=== PATIENT | male | born 1970 | race Caucasian/White ===

== ENCOUNTER 2017-01-22 10:35 | Inpatient (IN) | payer OTHER ==
[2017-01-22 10:40] VITALS: BMI 30.8
[2017-01-22] MEDS ORDERED: NS 1000 ML 1,000 ML IV ONE (11:01)
[2017-01-22] MEDS ORDERED: NS 1000 ML 1,000 ML ONE (11:04)
--- NOTE | 2017-01-22 11:04 | DR.ABDMALE ---
HPI - Time seen Time seen: 10:50 - PCP Primary Care Physician: LARON - HPI comment HPI Comment: PATIENT HAD PILONIDAL CYST SURGERY ABD STILL HAVE INFECTION IN SURGERY AREA WITH PAIN. ALSO ABDOMINAL PAIN, DIARRHEA AND NAUSEA ALSO. NO FEVER. PAIN WORSE AT NIGHT. WORSE TODAY ALSO. - Complaint Chief Complaint Doctors Comments: INCREASING ABDOMINAL PAIN TIMES 3 WEEKS. Chief Complaint:: PT. C/O ABDOMINAL PAIN X 3 WEEKS WHICH IS WORSE AT NIGHT. PT. STATES HE IS NOT SLEEPING WELL AT ALL AND IS UP EVERY HOUR AND HAVING DIARRHEA. PT. HAD 2 CYST NEAR BUTTOCKS REMOVED 3 WEEKS AGO IN [place]. - Reviewed Nurses Notes Review: Yes - Mode of arrival Mode of Arrival: Ambulatory - Timing Onset of Chief Complaint: 01/01/17 Came on: Gradually - Duration Duration: Constant Duration: Days - Location Location: Diffuse - Severity Severity: Moderate - Quality Quality: Cramping, Sharp - Context Onset: Gradually History of: None - Modifying factors Worsening Factors: Nothing Improving Factors: Nothing - Associated signs and symptoms Associated Signs and Symptoms: Nausea, Diarrhea PMH - PMH Past Medical History: No Past Surgical History: Yes Surgical History: Appendectomy, Other Past Surgical History Comment: CYST REMOVAL, ROTATOR CUFF, RIGHT KNEE - Family History History of Family Medical Conditions: No - Social History Does patient currently use any type of tobacco product: No Have you used tobacco products in the last 12 months: Yes Type of Tobacco Use: Cigarettes Does any household member use tobacco: No Alcohol Use: None Do you use any recreational Drugs:: No Lives With: Family Lives Where: Home - infectious screening In the last 2 months have you had wt loss of >10#?: NO Have you had fever, night sweats or hemotysis?: No Have you traveled outside the country in the last 6 months?: No Isolation: Standard ROS - Review of Systems Constitutional: Weakness, Fatigue Eyes: negative: Eye Pain, Discharge ENTM: negative: Ear Pain, Nose Discharge, Nose Congestion, Throat Pain Respiratoy: Non-Productive Cough. negative: Short of Breath, Wheezing, Hemoptysis Cardiovascular: No Symptoms Reported Gastrointestinal/Abdominal: Abdominal Pain, Diarrhea, Nausea Genitourinary: No Symptoms Reported. negative: Dysuria, Frequency, Hematuria Neurological: Weakness Musculoskeletal: Muscle Pain Integumentary: Dryness Endocrine: No Symptoms Reported All Other Systems: Reviewed and Negative PE - Vital Signs Vital Signs: Temp Pulse Resp BP Pulse Ox 10/20/17 10:36 97.6 F 93 H 18 133/82 99 02/16/13 09:10 126/80 - General Limitations: No Limitations General Appearance: Alert - Head Head Exam: Normal Inspection - Eyes Eye exam: Normal Appearance - ENT ENT Exam: Normal External Ear Exam - Chest Chest Inspection: Symmetric Chest Wall Rise - Respiratory Respiratory Exam: Normal Lung Sounds Bilat Respiratory Exam: Bilateral Clear to Auscultation - Cardiovascular Cardiovascular Exam: Regular Rate, Normal Rhythm, Normal Heart Sounds - Abdominal Exam Abdominal Exam: Normal Bowel Sounds, Soft, Tenderness Abdominal Tenderness: Diffuse, Moderate - Rectal Rectal Exam: Other (INFECTED PILONIDAL CYSY POSR DRAINAGE) - Back Back Exam: Paraspinal Tenderness - Extremeties Extremities Exam: Normal Inspection - Exam: Male: Deferred - Neurologic Neurological Exam: Alert, Oriented X3 - Psychiatric Psychiatric Exam: Normal Affect, Normal Mood - Skin Skin Exam: Erythema MDM - Differential Diagnosis Differential Diagnosis: Bowel Obstruction, Cholcystitis, Cholelethiasis, Gastritus/PUD, Gastroenteritis, Pancreatitis, Urinary tract infection, Urolithiasis Course - Treatment Treatment: SEE ORDERS. - Education/Counseling Education/Counseling: Patient, Education Educated On: Treatment, Diagnosis, Needs for Follow Up ROR - Labs Reviewed Laboratory Results Reviewed?: Yes Result Diagrams: 01/24/17 04:05 01/24/17 04:05 Laboratory: 01/22/17 11:20 Blood Blood Culture - Preliminary 01/22/17 11:10 Blood Blood Culture - Preliminary WBC 12.8 X10^3/uL (3.6-10.0) H 01/24/17 04:05 RBC 4.82 X10^6/uL (4.7-6.0) 01/24/17 04:05 Hgb 14.1 g/dL (13.5-18.0) 01/24/17 04:05 Hct 42.4 % (42.0-54.0) 01/24/17 04:05 MCV 88.0 fL (80.0-100.0) 01/24/17 04:05 MCH 29.2 pg (27.0-34.0) 01/24/17 04:05 MCHC 33.2 g/dL (33.0-35.0) 01/24/17 04:05 RDW 14.0 % (11.6-16.5) 01/24/17 04:05 Plt Count 255 X10^3/uL (150.0-450.0) 01/24/17 04:05 MPV 7.3 fL (7.4-11.0) L 01/24/17 04:05 Neut % 76.1 % (42.0-75.0) H 01/24/17 04:05 Lymph % 10.8 % (21.0-51.0) L 01/24/17 04:05 [place] % 9.2 % (0.0-13.0) 01/24/17 04:05 Eos % 3.6 % (0.9-2.9) H 01/24/17 04:05 Baso % 0.3 % (0.2-1.0) 01/24/17 04:05 Neut # 9.7 x10^3/uL (2.2-4.8) H 01/24/17 04:05 Lymph # 1.4 X10^3/uL (1.3-2.9) 01/24/17 04:05 [place] # 1.2 x10^3/uL (0.3-0.8) H 01/24/17 04:05 Eos # 0.5 x10^3/uL (0.0-0.2) H 01/24/17 04:05 Baso # 0.0 X10^3/uL (0.0-0.1) 01/24/17 04:05 Absolute Nucleated RBC 0.0 /100WBC 01/24/17 04:05 Sodium 139 mmol/L (136-145) 01/24/17 04:05 Corrected Sodium 139 mmol/L (136-145) 01/24/17 04:05 Potassium 4.8 mmol/L (3.5-5.1) 01/24/17 04:05 Chloride 107 mmol/L (98-107) 01/24/17 04:05 Carbon Dioxide 25.5 mmol/L (21-32) 01/24/17 04:05 BUN 8 mg/dL (7-18) 01/24/17 04:05 Creatinine 1.20 mg/dL (0.70-1.30) 01/24/17 04:05 Est GFR (MDRD) Af Amer > 60 (>60) 01/24/17 04:05 Est GFR (MDRD) Non-Af > 60 (>60) 01/24/17 04:05 Glucose 120 mg/dL (65-99) H 01/24/17 04:05 Calcium 8.6 mg/dL (8.5-10.1) 01/24/17 04:05 Corrected Calcium 9.7 mg/dL (8.5-10.1) 01/24/17 04:05 Total Bilirubin 0.30 mg/dL (0.2-1.0) 01/24/17 04:05 AST 19 Units/L (15-37) 01/24/17 04:05 ALT 27 Units/L (12-78) 01/24/17 04:05 Alkaline Phosphatase 34 Units/L (46-116) L 01/24/17 04:05 Total Protein 5.6 g/dL (6.4-8.2) L 01/24/17 04:05 Albumin 2.6 g/dL (3.4-5.0) L 01/24/17 04:05 Globulin 3.0 g/dL (2.5-4.5) 01/24/17 04:05 Albumin/Globulin Ratio 0.9 Ratio (1.1-2.1) L 01/24/17 04:05 Amylase 24 Units/L (25-115) L 01/22/17 11:00 Lipase 122 Units/L (73-393) 01/22/17 11:00 Specimen Type Clean catch urine 01/22/17 15:58 Urine Color Dark yellow (YELLOW) 01/22/17 15:58 Urine Appearance Clear (CLEAR) 01/22/17 15:58 Urine pH 6.0 (5.0 - 8.0) 01/22/17 15:58 Ur Specific [place] 1.020 (1.000-1.030) 01/22/17 15:58 Urine Protein 1+ (NEGATIVE) 01/22/17 15:58 Urine Glucose (UA) 1+ (NEGATIVE) 01/22/17 15:58 Urine Ketones Negative (NEGATIVE) 01/22/17 15:58 Urine Occult Blood Negative (NEGATIVE) 01/22/17 15:58 Urine Nitrite Negative (NEGATIVE) 01/22/17 15:58 Urine Bilirubin Negative (NEGATIVE) 01/22/17 15:58 Urine Urobilinogen Normal (NORMAL) 01/22/17 15:58 Ur Leukocyte Esterase 1+ (NEGATIVE) 01/22/17 15:58 Urine RBC None seen /HPF (NEGATIVE) 01/22/17 15:58 Urine WBC 0-1 /HPF (NEGATIVE) 01/22/17 15:58 Ur Squamous Epith Cells Rare /HPF (NEGATIVE) 01/22/17 15:58 Urine Bacteria Negative /HPF (NEGATIVE) 01/22/17 15:58 Urine Mucus Rare /HPF (NEGATIVE) 01/22/17 15:58 Ur Culture Indicated? No/not indicated 01/22/17 15:58 Stool Description 30 g. liquid/mucoid 01/22/17 15:58 Stl Occult Blood (IFOB) Positive (NEGATIVE) A 01/22/17 15:58 Stool for White Cells Positive (NEGATIVE) A 01/22/17 15:58 Stl C. diff Tox B Gene Positive (NEGATIVE) A 01/22/17 15:58 Stl C. diff [id number] Positive (NEGATIVE) A 01/22/17 15:58 Cryptosporid parvum Ag Negative (NEGATIVE) 01/22/17 15:58 E. histolytica Antigen Negative (NEGATIVE) 01/22/17 15:58 Giardia lamblia Ag Negative (NEGATIVE) 01/22/17 15:58 - XRAY XRAY Findings: REPORT DISCUSS WITH PATIENT. - Diagnosis Discharge Problem: Infected pilonidal cyst Diarrhea Qualifiers: Diarrhea type: unspecified type Qualified Code(s): R19.7 - Diarrhea, unspecified Ulcerative colitis Qualifiers: Ulcerative colitis location: ulcerative pancolitis Digestive disease complication type: without complication Qualified Code(s): K51.00 - Ulcerative ( chronic) pancolitis without complications Abdominal pain Qualifiers: Abdominal location: generalized Qualified Code(s): R10.84 - Generalized abdominal pain - Discharge Plan Disposition: ADMITTED INPATIENT Condition: Stable - Follow ups/Referrals - Instructions
[2017-01-22 11:11] LABS: BASOPHILS # (AUTO) 0.1 X10^3/uL (0.0-0.1); BASOPHILS % (AUTO) 0.4 % (0.2-1.0); EOSINOPHILS # (AUTO) 0.2 x10^3/uL (0.0-0.2); EOSINOPHILS % (AUTO) 1.1 % (0.9-2.9); HEMATOCRIT 46.7 % (42.0-54.0); HEMOGLOBIN 16.2 g/dL (13.5-18.0); LYMPHOCYTES # (AUTO) 0.9 X10^3/uL (1.3-2.9); LYMPHOCYTES % (AUTO) 5.5 % (21.0-51.0); MEAN CORPUSCULAR HGB CONC 34.6 g/dL (33.0-35.0); MEAN CORPUSCULAR VOLUME 86.8 fL (80.0-100.0); MEAN PLATELET VOLUME 7.1 fL (7.4-11.0); MONOCYTES # (AUTO) 1.5 x10^3/uL (0.3-0.8); MONOCYTES % (AUTO) 9.5 % (0.0-13.0); NEUTROPHILS # (AUTO) 13.4 x10^3/uL (2.2-4.8); NEUTROPHILS % (AUTO) 83.5 % (42.0-75.0); PLATELET COUNT 281 X10^3/uL (150.0-450.0); RED BLOOD COUNT 5.39 X10^6/uL (4.7-6.0); RED CELL DISTRIBUTION WIDTH 14.4 % (11.6-16.5)
[2017-01-22 11:23] LABS: ALANINE AMINOTRANSFERASE 33 Units/L (12-78); ALBUMIN 3.4 g/dL (3.4-5.0); ALKALINE PHOSPHATASE 43 Units/L (46-116); AMYLASE 24 Units/L (25-115); ASPARTATE AMINO TRANSFERASE 20 Units/L (15-37); BLOOD UREA NITROGEN 8 mg/dL (7-18); CALCIUM 9.2 mg/dL (8.5-10.1); CARBON DIOXIDE 25.9 mmol/L (21-32); CHLORIDE 104 mmol/L (98-107); COR NA(FOR HYPERGLY) 137 mmol/L (136-145); LIPASE 122 Units/L (73-393); SODIUM 137 mmol/L (136-145); eGFR BLACK RACES > 60 (>60); eGFR NON BLACK RACES > 60 (>60)
--- NOTE | 2017-01-22 11:53 | CT ---
History: Abdominal pain and diarrhea for 2 weeks Study: CT of the abdomen and pelvis without contrast. Sagittal and coronal reformations were provided . Comparison: None Findings: The liver and spleen and pancreas and kidneys and adrenal glands are unremarkable. The visu alized lung bases are clear. No significant bony abnormality is demonstrated. There is diffuse thickening of the wall of the colon with stranding of fat planes around the colon. T he there is no free fluid or free air and there is no small bowel distention. There is no adenopathy. Impression: Diffuse colitis, suggestive of ulcerative colitis. Reported By:
[2017-01-22] MEDS ORDERED: PEPCID 20 MG IV PREMIX* 20 MG/50 ML BAG IV PRN (12:44)
[2017-01-22] MEDS ORDERED: ZOFRAN INJ 4 MG VIAL IVP PRN (12:44)
[2017-01-22] MEDS ORDERED: MORPHINE SULFATE INJ 4 MG ONE (12:54)
[2017-01-22] MEDS: NS 1000 ML 1,000 ML IV SCH (12:59)
[2017-01-22] MEDS: FLAGYL IV PREMIX 500 MG BAG 500 MG/100 ML BAG IV SCH ×3 (12:59→20:56)
[2017-01-22] MEDS: MORPHINE SULFATE INJ 2 MG INJ IVP PRN ×2 (12:59→18:14)
[2017-01-22] MEDS ORDERED: TORADOL 30 MG VIAL IVP ONE (15:11)
[2017-01-22] MEDS: PHENERGAN INJ 25 MG IVP PRN (15:40)
[2017-01-22 16:19] LABS: BILIRUBIN,URINE NEGATIVE (NEGATIVE); BLOOD/HEMOGLOBIN,URINE NEGATIVE (NEGATIVE); GLUCOSE, URINE 1+ (NEGATIVE); KETONES,URINE NEGATIVE (NEGATIVE); LEUKOCYTE ESTERASE ,URINE 1+ (NEGATIVE); NITRITES,URINE NEGATIVE (NEGATIVE); PROTEIN,URINE 1+ (NEGATIVE); UROBILINOGEN,URINE NORMAL (NORMAL)
[2017-01-22 16:38] LABS: APPEARANCE,URINE CLEAR (CLEAR); COLOR,URINE DARK YELLOW (YELLOW)
[2017-01-22 16:39] LABS: BACTERIA,URINE NEGATIVE /HPF (NEGATIVE); MUCUS,URINE RARE /HPF (NEGATIVE); RBC,URINE NONE SEEN /HPF (NEGATIVE); SQUAMOUS EPITHELIAL CELL,UR RARE /HPF (NEGATIVE)
[2017-01-22 16:57] LABS: STOOL FOR WBC POSITIVE (NEGATIVE)
[2017-01-22] MEDS ORDERED: TORADOL 30 MG VIAL IVP PRN (19:06)
[2017-01-22 19:16] LABS: CRYPTOSPORIDIUM PARVUM ANTIGEN NEGATIVE (NEGATIVE); GIARDIA LAMBLIA ANTIGEN NEGATIVE (NEGATIVE)
[2017-01-22] MEDS: CIPRO IV 400 MG PREMIX* 400 MG/200 ML IV.SOLN. IV SCH (20:57)
[2017-01-22] MEDS: RESTORIL CAP 15 MG PO PRN (20:57)
[2017-01-23] MEDS: NS 1000 ML 1,000 ML IV SCH ×5 (00:26→21:24)
[2017-01-23] MEDS ORDERED: NS 1/2 1000 ML IV 1,000 ML IV ONE (02:13)
[2017-01-23] MEDS: FLAGYL IV PREMIX 500 MG BAG 500 MG/100 ML BAG IV SCH ×2 (02:19→08:18)
[2017-01-23] MEDS: PHENERGAN INJ 25 MG IVP PRN (02:52)
[2017-01-23 06:03] LABS: BASOPHILS # (AUTO) 0.1 X10^3/uL (0.0-0.1); BASOPHILS % (AUTO) 0.6 % (0.2-1.0); EOSINOPHILS # (AUTO) 0.4 x10^3/uL (0.0-0.2); EOSINOPHILS % (AUTO) 2.7 % (0.9-2.9); HEMATOCRIT 42.2 % (42.0-54.0); HEMOGLOBIN 14.4 g/dL (13.5-18.0); LYMPHOCYTES # (AUTO) 1.2 X10^3/uL (1.3-2.9); LYMPHOCYTES % (AUTO) 9.2 % (21.0-51.0); MEAN CORPUSCULAR HEMOGLOBIN 29.9 pg (27.0-34.0); MEAN CORPUSCULAR HGB CONC 34.1 g/dL (33.0-35.0); MEAN CORPUSCULAR VOLUME 87.6 fL (80.0-100.0); MEAN PLATELET VOLUME 7.6 fL (7.4-11.0); MONOCYTES # (AUTO) 1.4 x10^3/uL (0.3-0.8); MONOCYTES % (AUTO) 10.4 % (0.0-13.0); NEUTROPHILS # (AUTO) 10.4 x10^3/uL (2.2-4.8); NEUTROPHILS % (AUTO) 77.1 % (42.0-75.0); PLATELET COUNT 249 X10^3/uL (150.0-450.0); RED BLOOD COUNT 4.82 X10^6/uL (4.7-6.0); RED CELL DISTRIBUTION WIDTH 14.2 % (11.6-16.5); WHITE BLOOD COUNT 13.4 X10^3/uL (3.6-10.0)
[2017-01-23 06:24] LABS: ALANINE AMINOTRANSFERASE 29 Units/L (12-78); ALBUMIN 2.8 g/dL (3.4-5.0); ALKALINE PHOSPHATASE 35 Units/L (46-116); ASPARTATE AMINO TRANSFERASE 16 Units/L (15-37); BLOOD UREA NITROGEN 7 mg/dL (7-18); CALCIUM 8.6 mg/dL (8.5-10.1); CARBON DIOXIDE 25.2 mmol/L (21-32); CHLORIDE 107 mmol/L (98-107); COR CA(FOR HYPOALB) 9.6 mg/dL (8.5-10.1); CREATININE 1.27 mg/dL (0.70-1.30); SODIUM 139 mmol/L (136-145); TOTAL PROTEIN 5.9 g/dL (6.4-8.2); eGFR BLACK RACES > 60 (>60); eGFR NON BLACK RACES > 60 (>60)
[2017-01-23] MEDS: CIPRO IV 400 MG PREMIX* 400 MG/200 ML IV.SOLN. IV SCH ×2 (08:19→20:44)
[2017-01-23] MEDS ORDERED: BENTYL CAP 10 MG PO ONE (14:26)
[2017-01-23] MEDS: BENTYL CAP 10 MG PO SCH ×3 (14:32→20:45)
[2017-01-23] MEDS: FLAGYL TAB 500 MG PO SCH ×2 (14:33→21:25)
[2017-01-23] MEDS: ULTRAM PO SCH ×2 (14:33→20:44)
[2017-01-23] MEDS: RESTORIL CAP 15 MG PO PRN (20:45)
[2017-01-24] MEDS: ULTRAM PO SCH ×4 (02:21→21:33)
[2017-01-24 05:07] LABS: BASOPHILS % (AUTO) 0.3 % (0.2-1.0); EOSINOPHILS # (AUTO) 0.5 x10^3/uL (0.0-0.2); EOSINOPHILS % (AUTO) 3.6 % (0.9-2.9); HEMATOCRIT 42.4 % (42.0-54.0); HEMOGLOBIN 14.1 g/dL (13.5-18.0); LYMPHOCYTES # (AUTO) 1.4 X10^3/uL (1.3-2.9); LYMPHOCYTES % (AUTO) 10.8 % (21.0-51.0); MEAN CORPUSCULAR HEMOGLOBIN 29.2 pg (27.0-34.0); MEAN CORPUSCULAR HGB CONC 33.2 g/dL (33.0-35.0); MEAN PLATELET VOLUME 7.3 fL (7.4-11.0); MONOCYTES # (AUTO) 1.2 x10^3/uL (0.3-0.8); MONOCYTES % (AUTO) 9.2 % (0.0-13.0); NEUTROPHILS # (AUTO) 9.7 x10^3/uL (2.2-4.8); NEUTROPHILS % (AUTO) 76.1 % (42.0-75.0); PLATELET COUNT 255 X10^3/uL (150.0-450.0); RED BLOOD COUNT 4.82 X10^6/uL (4.7-6.0); WHITE BLOOD COUNT 12.8 X10^3/uL (3.6-10.0)
[2017-01-24 05:24] LABS: ALANINE AMINOTRANSFERASE 27 Units/L (12-78); ALBUMIN 2.6 g/dL (3.4-5.0); ALKALINE PHOSPHATASE 34 Units/L (46-116); ASPARTATE AMINO TRANSFERASE 19 Units/L (15-37); BLOOD UREA NITROGEN 8 mg/dL (7-18); CALCIUM 8.6 mg/dL (8.5-10.1); CARBON DIOXIDE 25.5 mmol/L (21-32); CHLORIDE 107 mmol/L (98-107); COR CA(FOR HYPOALB) 9.7 mg/dL (8.5-10.1); COR NA(FOR HYPERGLY) 139 mmol/L (136-145); SODIUM 139 mmol/L (136-145); TOTAL PROTEIN 5.6 g/dL (6.4-8.2); eGFR BLACK RACES > 60 (>60); eGFR NON BLACK RACES > 60 (>60)
[2017-01-24] MEDS: NS 1000 ML 1,000 ML IV SCH ×3 (06:18→19:15)
[2017-01-24] MEDS: FLAGYL TAB 500 MG PO SCH ×3 (06:18→21:33)
[2017-01-24] MEDS: CIPRO IV 400 MG PREMIX* 400 MG/200 ML IV.SOLN. IV SCH ×2 (08:30→21:32)
[2017-01-24] MEDS: BENTYL CAP 10 MG PO SCH ×4 (08:31→21:32)
[2017-01-24] MEDS ORDERED: TORADOL 15 MG VIAL IVP ONE (12:39)
[2017-01-24] MEDS ORDERED: TORADOL 15 MG VIAL IVP PRN (14:09)
[2017-01-24] MEDS ORDERED: NS 1000 ML 1,000 ML IV ONE (14:09)
[2017-01-24] MEDS: COLCRYS TAB 0.6 MG PO SCH ×2 (15:43→21:33)
--- NOTE | 2017-01-24 19:14 | DR.H&P ---
H&P - History & Physical for Day of: H&P Date: 01/22/17 - Chief Complaint Chief Complaint: IS A 46 YEAR OLD PATIENT OF OURS WHO PRESENTED TO THE EMERGENCY ROOM WITH COMPLAINTS OF ABDOMINAL PAIN X 3 WEEKS. PATIENT HAS BEEN TREATED OUTPATIENT AT OUR OFFICE WITH CIPRO, LOMOTIL, BENTYL, AND OMEPRAZOLE. PATIENT ALSO REPORTS SYMPTOMS OF DIARRHEA AND NAUSEA. HE REPORTS A HISTORY OF PILONIDAL CYST REMOVEL 3 WEEKS AGO. HE DENIES FEVER. ON ARRIVAL, HIS VITAL SIGNS WERE 98.5-89-18-98%-139/79. LABS WERE OBTAINED. ABNORMAL LAB VALUES INCLUDE THE FOLLOWING: WBC 16.0, GLUCOSE 116, ALK PHOS 43, STOOL POSITIVE FOR OCCULT BLOOD, WBC, AND C-DIFF. BLOOD CULTURES AND STOOL CULTURES WERE SENT TO LAB. A WOUND CULTURE OF WOUND TO BUTTOCK ALSO SENT TO LAB. A CT OF THE ABD/ PELVIS W/O CONTRAST WAS OBTAINED AND REPORTED DIFFUSE COLITIS, SUGGESTIVE OF ULCERATIVE COLITIS. HE WAS ADMITTED FOR FURTHER TREATMENT AND EVALUATION. HE WAS STARTED ON FLAGYL 500MG Q6H IV, CIPRO 400MG IV Q12H, PEPCID 20MG IV Q12, NORMAL SALINE, ZOFRAN IV PRN FOR NAUSEA, AND MORPHINE IV PRN FOR PAIN. WE PLANNED TO FOLLOW UP WITH AM LABS AND CONTINUE TO MONITOR PATIENT. - Allergies Allergies/Adverse Reactions: Allergies Allergy/AdvReac Type Severity Reaction Status Date / Time Sulfa (Sulfonamide Allergy Verified 01/22/17 10:40 Antibiotics) [SULFA] - Past Medical History Past Medical History: GERD - Past Surgical History Surgical History: Appendectomy, Other Additional Surgical History: CYST REMOVED FROM BUTTOCK 3 WEEKS AGO - Social History Does patient currently use any type of tobacco product: No Have you used tobacco products in the last 12 months: Yes Type of Tobacco Use: Cigarettes How many years tobacco product used: 30 Does any household member use tobacco: No Alcohol Use: None Drug Use: None - Medications Home Medications: Ciprofloxacin HCl 1 tab PO BID 01/22/17 [History Confirmed 01/22/17] Dicyclomine HCl [BENTYL CAP 10 MG *] 1 cap PO QID PRN 01/22/17 [History Confirmed 01/22/17] Diphenoxylate/Atropine [LOMOTIL TAB *] 1 tab PO QID PRN 01/22/17 [History Confirmed 01/22/17] Omeprazole 20 mg PO BID 01/22/17 [History Confirmed 01/22/17] - Review of Systems Constitutional: Weakness. denies: Fever Eyes: No Symptoms Reported ENT: No Symptoms Reported Respiratory: Cough (NON-PRODUCTIVE ) Cardiovascular: No Symptoms Reported Gastrointestinal: See HPI, Nausea, Abdominal Pain, Diarrhea. denies: Vomiting, Constipation Genitourinary: No Symptoms Reported Musculoskeletal: No Symptoms Reported Skin: No Symptoms Reported Neurological: Weakness - Physical Exam Vital Signs: Temperature 99 F Pulse Rate [Right Brachial] 78 Pulse Rate 93 Respiratory Rate 18 Blood Pressure [Left Arm] 117/60 Blood Pressure [Right Arm] 114/57 Blood Pressure 133/82 O2 Sat by Pulse Oximetry 96 Oriented: Normal Eyes: Normal Ear: Normal Nose: Normal Throat: Normal Respiratory: Clear Throughout Cardiovascular: Normal : Normal Auscultation: Bowel Sounds: Increased Palpation: Normal Tenderness: Diffuse. negative: Rebound, Rigidity Skin: Normal Musculoskeletal: Normal Psychiatric: Normal Mood Description: Calm Affect: Normal Speech Pattern: Clear - Assessment/Plan (1) Abdominal pain Qualifiers: Abdominal location: generalized Qualified Code(s): R10.84 - Generalized abdominal pain Status: Acute Plan: MORPHINE PRN PAIN, CONTINUE TO MONITOR (2) Ulcerative colitis Qualifiers: Ulcerative colitis location: ulcerative pancolitis Digestive disease complication type: without complication Qualified Code(s): K51.00 - Ulcerative (chronic) pancolitis without complications Status: Acute Plan: ADMINISTER PAIN AND NAUSEA MEDS, CIPRO 400MG IV Q12H, FLAGYL 500MG IV Q6H , IV HYDRATION, CONTINUE TO MONITOR (3) C. difficile colitis Status: Acute Plan: CIPRO 400MG IV Q12H, FLAGYL 500MG IV Q6H, IV HYDRATION, CONTINUE TO MONITOR
[2017-01-24] MEDS: RESTORIL CAP 15 MG PO PRN (21:42)
[2017-01-25 04:35] LABS: BASOPHILS % (AUTO) 0.3 % (0.2-1.0); EOSINOPHILS # (AUTO) 0.4 x10^3/uL (0.0-0.2); EOSINOPHILS % (AUTO) 3.3 % (0.9-2.9); HEMATOCRIT 38.9 % (42.0-54.0); HEMOGLOBIN 13.1 g/dL (13.5-18.0); LYMPHOCYTES # (AUTO) 1.3 X10^3/uL (1.3-2.9); LYMPHOCYTES % (AUTO) 11.2 % (21.0-51.0); MEAN CORPUSCULAR HEMOGLOBIN 29.2 pg (27.0-34.0); MEAN CORPUSCULAR HGB CONC 33.6 g/dL (33.0-35.0); MEAN CORPUSCULAR VOLUME 86.9 fL (80.0-100.0); MONOCYTES # (AUTO) 1.3 x10^3/uL (0.3-0.8); NEUTROPHILS # (AUTO) 8.6 x10^3/uL (2.2-4.8); NEUTROPHILS % (AUTO) 74.2 % (42.0-75.0); PLATELET COUNT 238 X10^3/uL (150.0-450.0); RED BLOOD COUNT 4.48 X10^6/uL (4.7-6.0); RED CELL DISTRIBUTION WIDTH 13.9 % (11.6-16.5); WHITE BLOOD COUNT 11.6 X10^3/uL (3.6-10.0)
[2017-01-25 05:01] LABS: ALANINE AMINOTRANSFERASE 23 Units/L (12-78); ALBUMIN 2.5 g/dL (3.4-5.0); ALKALINE PHOSPHATASE 32 Units/L (46-116); ASPARTATE AMINO TRANSFERASE 17 Units/L (15-37); BLOOD UREA NITROGEN 6 mg/dL (7-18); CALCIUM 8.5 mg/dL (8.5-10.1); CARBON DIOXIDE 25.8 mmol/L (21-32); CHLORIDE 107 mmol/L (98-107); COR CA(FOR HYPOALB) 9.7 mg/dL (8.5-10.1); CREATININE 1.11 mg/dL (0.70-1.30); SODIUM 140 mmol/L (136-145); TOTAL PROTEIN 5.4 g/dL (6.4-8.2); eGFR BLACK RACES > 60 (>60); eGFR NON BLACK RACES > 60 (>60)
[2017-01-25] MEDS: FLAGYL TAB 500 MG PO SCH ×2 (06:16→13:33)
[2017-01-25] MEDS: ULTRAM PO SCH ×2 (06:16→09:46)
[2017-01-25] MEDS: COLCRYS TAB 0.6 MG PO SCH (09:46)
[2017-01-25] MEDS: BENTYL CAP 10 MG PO SCH ×2 (09:46→13:32)
[2017-01-25] MEDS: CIPRO IV 400 MG PREMIX* 400 MG/200 ML IV.SOLN. IV SCH (09:47)
[2017-01-25 12:26] VITALS: BP 123/78
== END 2017-01-25 12:30 | disposition home or self-care (01) | DRG 386 ==
LOC: ER 10:41 → MED/SURG 13:20 → OBSVTOIN 13:20
PROVIDERS: ADMIT Internal Medicine; ATTEND Internal Medicine
DX: K51.00 Ulcerative (chronic) pancolitis without complications (principal); R10.84 Generalized abdominal pain; R19.7 Diarrhea, unspecified; L05.91 Pilonidal cyst without abscess; D72.828 Other elevated white blood cell count; A04.72 Enterocolitis due to Clostridium difficile, not specified as recurrent; K92.1 Melena
CPT/HCPCS: 36415; 74176; 80053; 81001; 82150; 82270; 83630; 83690; 85025; 87040; 87045; 87070; 87075; 87205; 87328; 87329; 87336; 87427; 87493; 87899; 96365; 96374; 96375; 99284; A4222; S0028; S0030; J0744; J1885; J2270; J2405; J2550

== ENCOUNTER 2018-07-10 09:57 | Observation (INO) ==
[2018-07-10] MEDS ORDERED: NITROSTAT SL PRN (10:04)
[2018-07-10] MEDS: ASPIRIN 81 MG CHEWTAB PO ONE (10:05)
[2018-07-10] MEDS ORDERED: ASPIRIN 81 MG CHEWTAB ONE (10:06)
[2018-07-10] MEDS ORDERED: MORPHINE SULFATE INJ 4 MG IVP ONE (10:11)
[2018-07-10] MEDS ORDERED: MORPHINE SULFATE INJ 4 MG ONE (10:12)
[2018-07-10 10:18] LABS: BASOPHILS # (AUTO) 0.1 X10^3/uL (0.0-0.1); BASOPHILS % (AUTO) 0.9 % (0.2-1.0); EOSINOPHILS # (AUTO) 0.1 x10^3/uL (0.0-0.2); EOSINOPHILS % (AUTO) 1.6 % (0.9-2.9); HEMATOCRIT 47.9 % (42.0-54.0); HEMOGLOBIN 16.5 g/dL (13.5-18.0); LYMPHOCYTES # (AUTO) 1.9 X10^3/uL (1.3-2.9); LYMPHOCYTES % (AUTO) 23.5 % (21.0-51.0); MEAN CORPUSCULAR HEMOGLOBIN 32.4 pg (27.0-34.0); MEAN CORPUSCULAR HGB CONC 34.5 g/dL (33.0-35.0); MEAN CORPUSCULAR VOLUME 94.2 fL (80.0-100.0); MONOCYTES # (AUTO) 0.6 x10^3/uL (0.3-0.8); NEUTROPHILS # (AUTO) 5.5 x10^3/uL (2.2-4.8); PLATELET COUNT 233 X10^3/uL (150.0-450.0); RED BLOOD COUNT 5.09 X10^6/uL (4.7-6.0); RED CELL DISTRIBUTION WIDTH 14.9 % (11.6-16.5); WHITE BLOOD COUNT 8.2 X10^3/uL (3.6-10.0)
[2018-07-10 10:24] VITALS: BMI 30.8
[2018-07-10 10:33] LABS: BLOOD UREA NITROGEN 10 mg/dL (7-18); CALCIUM 9.1 mg/dL (8.5-10.1); CARBON DIOXIDE 23.3 mmol/L (21-32); CHLORIDE 102 mmol/L (98-107); COR NA(FOR HYPERGLY) 141 mmol/L (136-145); CREATININE 1.28 mg/dL (0.70-1.30); SODIUM 139 mmol/L (136-145); TROPONIN I < 0.02 ng/mL (0-1.5); eGFR NON BLACK RACES > 60 (>60)
--- NOTE | 2018-07-10 10:46 | RAD ---
HISTORY: Chest pain Study: Single-view chest Comparison: None Findings: The trachea is midline. The cardiac silhouette is unremarkable. The lungs are clear without focal infiltrate or effusion. The bony thorax is unremarkable. IMPRESSION: 1. No acute cardiopulmonary disease. Reported By:
[2018-07-10 10:58] LABS: ALANINE AMINOTRANSFERASE 49 Units/L (12-78); ALBUMIN 4.1 g/dL (3.4-5.0); ALKALINE PHOSPHATASE 36 Units/L (46-116); ASPARTATE AMINO TRANSFERASE 29 Units/L (15-37); CKMB % 1.7 % (<4); CREATINE KINASE 70 Units/L (39-308); CREATINE KINASE MB 1.2 ng/mL (0-4.0); MAGNESIUM 1.7 mg/dL (1.7-2.9); TOTAL PROTEIN 7.3 g/dL (6.4-8.2)
--- NOTE | 2018-07-10 11:19 | DR.CP ---
HPI Time Seen Time Seen by Provider: 07/10/18 10:43 PCP Primary Care Physician: pastora Complaint Chief Complaint Doctor Comments: Patient presented today for evaluation of right chest pain onset on yesterday after picking up a 50-75lbs concrete slab. The pain has increased in intensity since then it is 10/10, sharp non radiating. He denies a history of cardiac disease. Family history: dad with heart attack, younger brother due to cancer. Chief Complaint:: pt stated yesterday he picked up a heavy concret slab and s tarted hurting in his right chest wall. this morning on his way to [facility] his pain got worse. Source History Provided: Patient Mode of Arrival Mode of Arrival: Ambulatory Timing Onset of Chief Complaint: 07/09/18 PMH PMH Past Medical History: Yes Past Medical History: Asthma and Hypertension; denies Anxiety, Arthritis, [place] ry Artery Disease, CVA, Diabetes, Dyslipidemia, Hyperthyroidism and Hypothyroidism Past Surgical History: Yes Surgical History: Unknown, No History and Ortho Surgery Family History History of Family Medical Conditions: No Social History Does patient currently use any type of tobacco product: No Have you used tobacco products in the last 12 months: No Type of Tobacco Use: None Does any household member use tobacco: No Alcohol Use: None Do you use any recreational Drugs:: No Lives With: Alone Lives Where: Home infectious screening In the last 2 months have you had wt loss of >10#?: NO Have you had fever, night sweats or hemotysis?: No Have you traveled outside the country in the last 6 months?: No Isolation: Standard ROS Review of Systems Constitutional: No Symptoms Reported Eyes: No Symptoms Reported; negative Blurred Vision, Discharge, Photophobia and Diplopia ENTM: negative No Symptoms Reported, Ear Pain, Ear Discharge, Pulling on Ears, Hearing Loss, Nose Discharge and Epistaxis Respiratoy: negative No Symptoms Reported, Productive Cough, Non-Productive Cough, Orthopnea, Short of Breath and Stridor Cardiovascular: negative No Symptoms Reported, Chest Pain (right chest wall pain), Edema, Palpitations and Syncope Gastrointestinal/Abdominal: negative No Symptoms Reported Genitourinary: negative No Symptoms Reported Neurological: No Symptoms Reported; negative Anxiety, Emotional Problems, Headache, Numbness and Paresthesia Musculoskeletal: Muscle Pain (chest wall pain) and Chest wall; negative Shoulder, Arm, Elbow and Wrist Integumentary: negative No Symptoms Reported and Change in Color Hematologic/Lymphatic: negative No Symptoms Reported Endocrine: Excessive Sweating, Intolerance to Cold and Intolerance to Heat; negative No Symptoms Reported Psychiatric: No Symptoms Reported; negative Depression All Other Systems: Reviewed and Negative PE Vitals Vitals: Temperature 98.6 F Pulse Rate [Left Radial] 100 Pulse Rate 100 Respiratory Rate 16 Blood Pressure [Left Arm] 157/94 Blood Pressure 164/98 O2 Sat by Pulse Oximetry 98 General Limitations: No Limitations General Appearance: Alert, Anxious and In Distress (right chest wall pain) Head Head Exam: Normal Inspection, Atraumatic and Normocephalic Eyes Eye exam: Normal Appearance, PERRL and EOMI; negative Scleral Icterus, Conjunctival Injection, Nystagmus and Periorbital Tenderness ENT ENT Exam: Normal Exam, Normal Oropharynx, Normal External Ear Exam, Mucous Membranes Moist and TM's Normal Bilaterally Chest Chest Inspection: Normal Inspection, Symmetric Chest Wall Rise and Tenderness (right chest wall, no erythema or ecchymosis) Respiratory Respiratory Exam: Normal Lung Sounds Bilat and Chest Wall Tenderness (right); negative Prolonged Expiratory Phase, Respiratory Distress and Stridor Respiratory Exam: Bilateral: Clear to Auscultation Cardiovascular Cardiovascular Exam: Regular Rate, Normal Rhythm and Normal Heart Sounds Pulse: Normal Edema: negative Normal Abdominal Exam Abdominal Exam: Normal Inspection, Normal Bowel Sounds, Soft and Hypoactive Bowel Sounds; negative Distention, Guarding and Organomegaly Abdominal Tenderness: LLQ, Suprapubic and Diffuse; negative RUQ, RLQ, LUQ and Epigastrium Extremities Extremities Exam: Normal Inspection, Full ROM and Normal Capillary Refill; negative Tenderness, Edema, Joint Swelling and Calf Tenderness Back Back Exam: Normal Inspection, Full ROM and Muscle Spasm (rogjt); negative Tenderness, (R) CVA Tenderness, (L) CVA Tenderness, Paraspinal Tenderness, Vertebral Tenderness and Rashes Neurologic Neurological Exam: Alert, Oriented X3, CN II-XII Intact and Normal Gait Psychiatric Psychiatric Exam: Normal Affect, Anxious and Flat Affect Skin Skin Exam: Warm, Dry, Intact and Normal Color MDM Differential Diagnosis Differential Diagnosis: Angina, Aortic Dissection, Chest Wall Pain, Pleuritis and Pneumonia COURSE Treatment Treatment: Cardiac workup, Reevaluation 1st: Improved (pain level 7/10) Consultation Called: 11:00 Consultation Comments: Dr. Markham agreed to admit for chest pain protocol ROR Labs Reviewed Result Diagrams: 04/07/19 10:02 07/10/18 10:02 Laboratory: WBC 8.2 X10^3/uL (3.6-10.0) 07/10/18 10:02 RBC 5.09 X10^6/uL (4.7-6.0) 07/10/18 10:02 Hgb 16.5 g/dL (13.5-18.0) 07/10/18 10:02 Hct 47.9 % (42.0-54.0) 07/10/18 10:02 MCV 94.2 fL (80.0-100.0) 07/10/18 10:02 MCH 32.4 pg (27.0-34.0) 07/10/18 10:02 MCHC 34.5 g/dL (33.0-35.0) 07/10/18 10:02 RDW 14.9 % (11.6-16.5) 07/10/18 10:02 Plt Count 233 X10^3/uL (150.0-450.0) 07/10/18 10:02 MPV 7.0 fL (7.4-11.0) L 07/10/18 10:02 Neut % (Auto) 67.0 % (42.0-75.0) 07/10/18 10:02 Lymph % (Auto) 23.5 % (21.0-51.0) 07/10/18 10:02 [place] % (Auto) 7.0 % (0.0-13.0) 07/10/18 10:02 Eos % (Auto) 1.6 % (0.9-2.9) 07/10/18 10:02 Baso % (Auto) 0.9 % (0.2-1.0) 07/10/18 10:02 Neut # (Auto) 5.5 x10^3/uL (2.2-4.8) H 07/10/18 10:02 Lymph # (Auto) 1.9 X10^3/uL (1.3-2.9) 07/10/18 10:02 [place] # (Auto) 0.6 x10^3/uL (0.3-0.8) 07/10/18 10:02 Eos # (Auto) 0.1 x10^3/uL (0.0-0.2) 07/10/18 10:02 Baso # (Auto) 0.1 X10^3/uL (0.0-0.1) 07/10/18 10:02 Absolute Nucleated RBC 0.0 /100WBC 07/10/18 10:02 D-Dimer 265 ng/mL (0-400) 07/10/18 10:02 Sodium 139 mmol/L (136-145) 07/10/18 10:02 Corrected Sodium 141 mmol/L (136-145) 07/10/18 10:02 Potassium 3.9 mmol/L (3.5-5.1) 07/10/18 10:02 Chloride 102 mmol/L (98-107) 07/10/18 10:02 Carbon Dioxide 23.3 mmol/L (21-32) 07/10/18 10:02 BUN 10 mg/dL (7-18) 07/10/18 10:02 Creatinine 1.28 mg/dL (0.70-1.30) 07/10/18 10:02 Est GFR (MDRD) Af Amer > 60 (>60) 07/10/18 10:02 Est GFR (MDRD) Non-Af > 60 (>60) 07/10/18 10:02 Glucose 186 mg/dL (65-99) H 07/10/18 10:02 Calcium 9.1 mg/dL (8.5-10.1) 07/10/18 10:02 Corrected Calcium TNP 07/10/18 10:02 Magnesium 1.7 mg/dL (1.7-2.9) 07/10/18 10:02 Total Bilirubin 0.80 mg/dL (0.2-1.0) 07/10/18 10:02 AST 29 Units/L (15-37) 07/10/18 10:02 ALT 49 Units/L (12-78) 07/10/18 10:02 Alkaline Phosphatase 36 Units/L (46-116) L 07/10/18 10:02 Creatine Kinase 70 Units/L (39-308) 07/10/18 10:02 CK-MB (CK-2) 1.2 ng/mL (0-4.0) 07/10/18 10:02 CK/CKMB % Calc 1.7 % (<4) 07/10/18 10:02 Troponin I < 0.02 ng/mL (0-1.5) 07/10/18 10:02 Total Protein 7.3 g/dL (6.4-8.2) 07/10/18 10:02 Albumin 4.1 g/dL (3.4-5.0) 07/10/18 10:02 Globulin 3.2 g/dL (2.5-4.5) 07/10/18 10:02 Albumin/Globulin Ratio 1.3 Ratio (1.1-2.1) 07/10/18 10:02 Other Results Comments: Chest; No acute cardiopulmonary disease XRAY XRAY Interpreted by: Radiologist
[2018-07-10] MEDS ORDERED: DEMEROL INJ ONE (11:46)
[2018-07-10] MEDS ORDERED: DEMEROL INJ IVP PRN ×2 (11:46→11:47)
[2018-07-10] MEDS ORDERED: CRESTOR TAB 10 MG PO SCH ×2 (12:17→21:00)
[2018-07-10] MEDS ORDERED: TESSALON PERLES PO PRN (12:17)
[2018-07-10] MEDS ORDERED: TORADOL 30 MG VIAL IVP ONE (13:16)
[2018-07-10 16:48] LABS: CREATINE KINASE 54 Units/L (39-308)
[2018-07-10 17:08] LABS: CKMB % 1.9 % (<4)
[2018-07-10 17:17] LABS: CREATINE KINASE MB < 1.0 ng/mL (0-4.0)
[2018-07-10 17:18] LABS: TROPONIN I < 0.02 ng/mL (0-1.5)
[2018-07-10] MEDS ORDERED: ULTRAM PO PRN (18:55)
[2018-07-10] MEDS ORDERED: TYLENOL 325 MG TAB PO PRN (20:00)
[2018-07-10] MEDS: PriLOSEC PO SCH (20:39)
[2018-07-10 23:18] LABS: CKMB % 2.4 % (<4); CREATINE KINASE 42 Units/L (39-308); CREATINE KINASE MB < 1.0 ng/mL (0-4.0); TROPONIN I < 0.02 ng/mL (0-1.5)
[2018-07-11 05:26] LABS: BASOPHILS % (AUTO) 0.5 % (0.2-1.0); EOSINOPHILS # (AUTO) 0.2 x10^3/uL (0.0-0.2); EOSINOPHILS % (AUTO) 2.1 % (0.9-2.9); HEMATOCRIT 44.3 % (42.0-54.0); HEMOGLOBIN 15.2 g/dL (13.5-18.0); LYMPHOCYTES # (AUTO) 2.5 X10^3/uL (1.3-2.9); LYMPHOCYTES % (AUTO) 28.6 % (21.0-51.0); MEAN CORPUSCULAR HEMOGLOBIN 32.7 pg (27.0-34.0); MEAN CORPUSCULAR HGB CONC 34.3 g/dL (33.0-35.0); MEAN CORPUSCULAR VOLUME 95.4 fL (80.0-100.0); MEAN PLATELET VOLUME 7.1 fL (7.4-11.0); MONOCYTES # (AUTO) 0.8 x10^3/uL (0.3-0.8); MONOCYTES % (AUTO) 8.6 % (0.0-13.0); NEUTROPHILS # (AUTO) 5.3 x10^3/uL (2.2-4.8); NEUTROPHILS % (AUTO) 60.2 % (42.0-75.0); PLATELET COUNT 196 X10^3/uL (150.0-450.0); RED BLOOD COUNT 4.64 X10^6/uL (4.7-6.0); RED CELL DISTRIBUTION WIDTH 15.1 % (11.6-16.5); WHITE BLOOD COUNT 8.9 X10^3/uL (3.6-10.0)
[2018-07-11 05:34] LABS: ALANINE AMINOTRANSFERASE 41 Units/L (12-78); ALBUMIN 3.5 g/dL (3.4-5.0); ALKALINE PHOSPHATASE 30 Units/L (46-116); ASPARTATE AMINO TRANSFERASE 20 Units/L (15-37); BLOOD UREA NITROGEN 13 mg/dL (7-18); CALCIUM 8.5 mg/dL (8.5-10.1); CHLORIDE 104 mmol/L (98-107); CHOL/HDL RATIO 3.1 (0.0-5.0); CHOLESTEROL 140 mg/dL (0-200); COR NA(FOR HYPERGLY) 140 mmol/L (136-145); CREATININE 1.24 mg/dL (0.70-1.30); HDL CHOLESTEROL 45 mg/dL (40-60); SODIUM 140 mmol/L (136-145); TOTAL PROTEIN 6.4 g/dL (6.4-8.2); TRIGLYCERIDES 128 mg/dL (0-150); eGFR NON BLACK RACES > 60 (>60)
[2018-07-11 08:00] VITALS: BP 161/97
[2018-07-11] MEDS ORDERED: COLCRYS TAB 0.6 MG PO SCH (09:00)
[2018-07-11] MEDS: ASPIRIN 81 MG CHEWTAB PO ONE (09:16)
[2018-07-11] MEDS: PriLOSEC PO SCH (09:16)
[2018-07-11 11:41] LABS: BILIRUBIN,URINE NEGATIVE (NEGATIVE); BLOOD/HEMOGLOBIN,URINE NEGATIVE (NEGATIVE); GLUCOSE, URINE NEGATIVE (NEGATIVE); KETONES,URINE NEGATIVE (NEGATIVE); LEUKOCYTE ESTERASE ,URINE NEGATIVE (NEGATIVE); NITRITES,URINE NEGATIVE (NEGATIVE); PROTEIN,URINE NEGATIVE (NEGATIVE); UROBILINOGEN,URINE NORMAL (NORMAL)
[2018-07-11 11:53] LABS: APPEARANCE,URINE CLEAR (CLEAR); COLOR,URINE YELLOW (YELLOW)
== END 2018-07-11 11:05 | disposition home or self-care (01) ==
LOC: ER 09:57 → MED/SURG 09:57 → MERGE 11:20 → MED/SURG 12:18
PROVIDERS: ADMIT Internal Medicine; ATTEND Internal Medicine
DX: R73.09 Other abnormal glucose; R07.89 Other chest pain; E83.118 Other hemochromatosis
CPT/HCPCS: 36415; 71010; 71045; 80053; 80061; 81003; 82550; 82553; 83036; 83735; 84484; 85025; 85378; 85610; 93005; 94760; 96365; 96374; 96375; 99218; 99284; A4216; A4222; G0378; J1885; J2175; J2270; J3490